=== PATIENT | male | born 1995 | race African-American/Black ===

== ENCOUNTER 2019-03-31 11:54 | Emergency (ER) | payer MEDICAID ==
[~2019-03-31] VITALS: Ht 185.4 cm; Wt 73.0 kg
[2019-03-31 12:56] LABS: BASOPHILS % 0.6 % (0.0-2.0); EOSINOPHILS % 2.4 % (0.0-5.0); HEMATOCRIT. 45.8 % (42.0-52.0); HEMOGLOBIN. 15.6 g/dL (14.0-18.0); LYMPHOCYTES % 25.4 % (20.0-50.0); MEAN CORPUSCULAR HEMOGLOBIN 27.8 pg (28.0-32.0); MEAN CORPUSCULAR VOLUME 81.7 fL (80.0-94.0); MEAN PLATELET VOLUME 9.3 fl (7.4-10.4); MONOCYTES % 5.6 % (2.0-8.0); PLATELET 167 x1000/uL (130-400); RED BLOOD CELL COUNT 5.61 mill/uL (4.7-6.1); RED CELL DISTRIBUTION WIDTH 13.7 % (11.6-14.6)
[2019-03-31 13:02] LABS: CHLORIDE 108 mEq/L (98-107)
[2019-03-31 14:43] VITALS: BP 131/56
== END 2019-03-31 14:46 | disposition home or self-care (01) ==
LOC: ER 11:54
DX: R06.02 Shortness of breath (principal); R19.7 Diarrhea, unspecified; J45.909 Unspecified asthma, uncomplicated; F12.10 Cannabis abuse, uncomplicated; Z87.891 Personal history of nicotine dependence; Z87.01 Personal history of pneumonia (recurrent); Z88.0 Allergy status to penicillin
CPT/HCPCS: 36415; 71045; 83880; 84484; 85379; 93005; 99284